=== PATIENT | male | born 1965 | race Hispanic/Latino ===

== ENCOUNTER → 2018-03-10 | Day surgery (SDC) | payer OTHER ==
[~2018-03-10] MED LIST: ATORVASTATIN CA20 MG PO; FENTANYL CITRATE/PF 100MCG/2 ML INJ ONE; HYOSCYAMINE SULFATE 0.5 MG/ML AMP ONE; LIDOCAINE HCL 2% LOCAL INJ 5 ML SDV VIAL INJ ONE; LISINOPRIL10 MG PO; METFORMIN HCL500 MG PO; MIDAZOLAM HCL 2 MG/2 ML VIAL ONE; PROPOFOL IV EMULSION 10 MG/ML 50 ML VIAL ONE
[2018-03-10 17:29] LABS: ALBUMIN 3.8 g/dL (3.5-5.0); BILIRUBIN,DIRECT 0.3 mg/dL (0.0-0.5)
--- NOTE | 2018-03-10 22:30 | Operative Report ---
DATE OF PROCEDURE: March 10, 2018 PROCEDURE PERFORMED: Esophagogastroduodenoscopy with biopsies and a colonoscopy with polypectomy. REFERRING PHYSICIAN: Dr. Yvette Preston INDICATIONS FOR EGD: History of heartburn, indigestion. INDICATIONS FOR COLONOSCOPY: Colorectal cancer screening, history of bright red blood per rectum. MEDICATION: Patient was done under MAC. Please see anesthesiologist note. PROCEDURE IN DETAIL: With the patient in left lateral decubitus position, flexible fiberoptic Olympus gastroscope was introduced into the esophagus under direct visualization without any difficulty. There was some patchy erythema noted in distal esophagus. A grade 1 esophageal varix versus prominent subepithelial esophageal vein was noted in the distal esophagus. There was no active bleeding or stigmata of recent hemorrhage. The GE junction was nodular and friable and biopsies were obtained. The scope was then advanced with ease into the stomach. Mucosa overlying the antrum and the body revealed some patchy erythema and mild to moderate edema, and biopsies were obtained and sent to stain for H. pylori. Pylorus appeared to be of normal contour and shape. It was intubated with ease and the scope was advanced all the way to the second portion of the duodenum. The scope was then withdrawn slowly. Mucosa overlying the proximal second portion and the duodenal bulb appeared to be within normal limits. The scope was then withdrawn back into the stomach and retroflexed, and mucosa overlying the fundus and the cardia appeared to be within normal limits. The scope was then straightened out. It was subsequently withdrawn. Patient tolerated procedure well. IMPRESSION: 1. Distal esophagitis. 2. Grade 1 esophageal varix versus prominent subepithelial esophageal vein. 3. Gastroesophageal junction, nodular and friable, biopsied. 4. Gastritis, biopsied. Biopsy sent to stain for Helicobacter pylori. PLAN: Follow up histology. Initiate Protonix 40 mg 1 p.o. q.a.m. a.c. Will check hepatic panel. Patient was then turned around. After adequate lubrication of the anal canal, flexible fiberoptic Olympus colonoscope was inserted into the rectum with ease and advanced all the way to the cecum. The right colon was suboptimally prepped with retained stools. One polyp was snared from the cecum. Whatever was visualized of the rest of the cecum and the ascending colon grossly appeared to be within normal limits. The transverse colon also appeared to be within normal limits. Diverticular disease was noted to involve the distal descending and the sigmoid colon. One submucosal nodule approximately 6 mm in size was removed per snare electrocautery. The rectum appeared to be within normal limits. The scope was then retroflexed into the distal rectum and small internal hemorrhoids were noted, none of which was actively bleeding. The scope was then straightened out. It was subsequently withdrawn, and some external hemorrhoids were also noted on the way out. IMPRESSION: 1. Suboptimal prep, right colon. 2. Cecal polyp, snared. 3. Diverticulosis. 4. Sigmoid colon submucosal nodule, snared. 5. Internal hemorrhoids, none actively bleeding. 6. External hemorrhoids. PLAN: Follow up histology. Initiate high-fiber low-fat diet. Initiate high-fiber supplement. Start hydrocortisone suppositories 25 mg b.i.d. times 10 days. Timing of followup colonoscopy pending pathology report. Job#: [id number] cc:YVETTE PRESTON MD
== END | disposition home or self-care (01) ==
LOC: OR 13:40
PROVIDERS: ATTEND Internal Medicine Gastroenterology
DX: K62.5 Hemorrhage of anus and rectum (principal); D12.0 Benign neoplasm of cecum; K29.70 Gastritis, unspecified, without bleeding; K31.89 Other diseases of stomach and duodenum; K21.0 Gastro-esophageal reflux disease with esophagitis; K22.8 Other specified diseases of esophagus; K44.9 Diaphragmatic hernia without obstruction or gangrene; K57.30 Diverticulosis of large intestine without perforation or abscess without bleeding; K63.89 Other specified diseases of intestine; K64.8 Other hemorrhoids; K59.00 Constipation, unspecified; K64.4 Residual hemorrhoidal skin tags; K42.9 Umbilical hernia without obstruction or gangrene; E11.9 Type 2 diabetes mellitus without complications; I10 Essential (primary) hypertension; E78.00 Pure hypercholesterolemia, unspecified; Z01.810 Encounter for preprocedural cardiovascular examination; Z79.84 Long term (current) use of oral hypoglycemic drugs; Z68.42 Body mass index [BMI] 45.0-49.9, adult; Z80.0 Family history of malignant neoplasm of digestive organs
CPT/HCPCS: 36415; 43239; 45385; 80076; 82948; 93005; J1980; J2001; J2250